=== PATIENT | female | born 1985 | race Two or more races ===

== ENCOUNTER 2022-11-30 10:18 | Inpatient (IN) | payer OTHER ==
[~2022-11-30] VITALS: Ht 167.6 cm; Wt 49.9 kg
--- NOTE | 2022-11-30 10:25 | NUR ---
FERNANDO RA39 "Family called acting bizarre this am- went to neighbors. Hallucinating. [id number]"
[2022-11-30 11:11] LABS: CALCIUM, SERUM 8.7 mg/dL (8.5-10.1); CARBON DIOXIDE 24 mmol/L (21-32); CHLORIDE 96 mmol/L (98-107); CREATININE 0.6 mg/dL (0.6-1.3); GLUCOSE 234 mg/dL (74-106); SODIUM SERUM 131 mmol/L (136-145); UREA NITROGEN, BLOOD 6 mg/dL (7-18)
--- NOTE | 2022-11-30 11:14 | NUR ---
potassium 2.6 , made aware
[2022-11-30 11:17] LABS: ALANINE AMINOTRANSFERASE 46 U/L (12-78); ALBUMIN 3.5 g/dL (3.4-5.0); ALCOHOL, BLOOD < 3 mg/dL (0-0); ALKALINE PHOSPHATASE 179 U/L (46-116); ASPARTATE AMINOTRANSFERASE 300 U/L (15-37); BILIRUBIN,DIRECT 0.5 mg/dL (0.0-0.2); BILIRUBIN,TOTAL 1.3 mg/dL (0.2-1.0); TOTAL PROTEIN, SERUM 8.6 g/dL (6.4-8.2)
[2022-11-30 11:20] LABS: ACETAMINOPHEN 0 ug/ml (10-30); POTASSIUM 2.6 mmol/L (3.5-5.1)
--- NOTE | 2022-11-30 11:30 | NUR ---
URINE SAMPLE OBTAINED
--- NOTE | 2022-11-30 11:40 | NUR ---
BLOOD SAMPLE OBTAINED
[2022-11-30] MEDS ORDERED: OLANZAPINE 10 MG VIAL IM ONE ×2 (11:45→12:00)
[2022-11-30] MEDS ORDERED: POTASSIUM CL. PREMIX PERIPHER. 200 ML ONE (11:49)
[2022-11-30] MEDS ORDERED: LORAZEPAM INJ 2 MG/ML VIAL ONE ×2 (11:50→17:06)
[2022-11-30] MEDS ORDERED: LORAZEPAM INJ 2 MG/ML VIAL IVP ONE (12:00)
[2022-11-30 12:28] LABS: BASOPHILS % (AUTO) 0.2 % (0.0-2.0); EOSINOPHILS % (AUTO) 0.1 % (0.0-6.0); HEMATOCRIT 38 % (33-45); HEMOGLOBIN 12.3 g/dL (11.5-14.8); LYMPHOCYTES # (AUTO) 2.8 K/uL (0.8-4.8); LYMPHOCYTES % (AUTO) 28.6 % (20.0-44.0); MEAN CORPUSCULAR HGB CONC 33 g/dl (31.0-36.0); MEAN CORPUSCULAR VOLUME 96 fL (82-100); MONOCYTES # (AUTO) 0.9 K/uL (0.1-1.30); NEUTROPHILS % (AUTO) 62.1 % (43.0-81.0); PLATELET COUNT (AUTO) 115 K/uL (150-450); RED BLOOD CELL COUNT(AUTO) 3.92 MIL/uL (4.0-5.2); WHITE BLOOD COUNT (AUTO) 9.7 K/uL (4.3-11.0)
[2022-11-30] MEDS: POTASSIUM CL. PREMIX PERIPHER. 50 ML IV SCH ×4 (12:30→15:35)
[2022-11-30 12:39] LABS: BILIRUBIN,URINE 2+ (NEGATIVE); COLOR,URINE YELLOW (YELLOW); LEUKOCYTE ESTERASE ,URINE TRACE (NEGATIVE); NITRITE, URINE NEGATIVE (NEGATIVE); PH,URINE 6.5 (5.0-8.0); PROTEIN,URINE 1+ mg/dl (NEGATIVE); UGLUCOSE NEGATIVE (NEGATIVE)
--- NOTE | 2022-11-30 12:55 | NUR ---
PATIENT TAKEN TO CT
--- NOTE | 2022-11-30 12:59 | NUR ---
MOVE SHEET SUBMITTED.
[2022-11-30] MEDS ORDERED: BICT1TAB PO (13:05)
--- NOTE | 2022-11-30 13:13 | NUR ---
PATIENT BACK FROM CT
--- NOTE | 2022-11-30 13:14 | NUR ---
COVID SWAB OBTAINED
[2022-11-30 13:28] LABS: BACTERIA,URINE None seen /HPF (None Seen); CALCIUM OXALATE CRYSTALS,UR Moderate /HPF (None Seen); RBC,URINE 0-2 /HPF (0-2); SQUAMOUS EPITHELIAL CELL,UR Many /HPF (None Seen)
[2022-11-30] MEDS ORDERED: MAG HYDROX/AL HYDROX/SIMETH 30 ML UDC PO PRN (14:30)
[2022-11-30] MEDS ORDERED: ACETAMINOPHEN 325 MG TABLET PO PRN (14:30)
[2022-11-30] MEDS ORDERED: Z GUARD REMEDY 4 OZ OINT TP PRN (14:30)
[2022-11-30] MEDS ORDERED: ONDANSETRON HCL/PF 4 MG/2 ML VIAL IVP PRN (14:30)
[2022-11-30] MEDS ORDERED: MAGNESIUM HYDROXIDE 30 ML UDC PO PRN (14:30)
--- NOTE | 2022-11-30 15:51 | NUR ---
BED 110 , ADMITTING AWARE
--- NOTE | 2022-11-30 16:08 | NUR ---
report given to Ileana GARCIA
--- NOTE | 2022-11-30 16:23 | NUR ---
patient moved to assigned inpatient room safely per protocol
[2022-11-30] MEDS ORDERED: LORAZEPAM INJ 2 MG/ML VIAL IV PRN (17:30)
--- NOTE | 2022-11-30 17:45 | NUR ---
RECEIVED PATIENT ADMISSION FROM ER ACCOMPANIED BY THE NURSE. PATIENT CAME VIA HOSPITAL BED. PATIENT IS VERY CONFUSED, ABLE TO SPEAK BUT CONVERSATIONS DOES NOT MAKE SENSE, PATIENT JUMPS FROM ONE CONVERSATION TO ANOTHER. ON RA WITH OXYGEN SATURATION OF 100%NO C/O PAIN OR DISCOMFORT. PLACED PATIENT ON A HEART MONITOR WITH HR OF 120 PER TELE MONITOR. IV ACCESS INTACT ON LEFT FOREARM, PATENT AND FLUSHES WELL WITH NO S/S INFILTRATION NOTED. BELONGINGS LIST DONE AND BODY CHECK DONE. ALL SAFETY MEASURES IMPLEMENTED. BED LOCKED AND IN LOWEST POSITION. WILL CONTINUE TO MONITOR PATIENT THROUGHOUT SHIFT. V/S FOLLOWS: BP 114/78, RR 20, TEMP 99.8
[2022-11-30] MEDS ORDERED: HALOPERIDOL LACTATE INJ 5 MG/ML VIAL IM ONE (18:30)
--- NOTE | 2022-11-30 18:30 | NUR ---
PATIENT WAS NOTED TO BE VERY RESTLESS AND TRYING TO GET OUT OF THE BED. PATIENT IS VERY DISORIENTED AND IS YELLING AND SCREAMING. NOTICED A RAPID ELEVATION IN PATIENT'S HR PER TELE MONITOR WITH HR OF 190. CALLED DR. MCCOY AND ORDERED HALDOL 1 MG AND STAT PSYCH CONSULT. CALLED RAPID RESPONSE TEAM DUE TO HR HAS BEEN GOING UP TO 200. PATIENT IS HIGHLY AGITATED AT THIS TIME. ALSO ORDERED RESTRAINTS FOR SAFETY AND FOR A ONE ON ONE SITTER. WILL CONTINUE TO MONITOR PATIENT
[2022-11-30 18:41] VITALS: BP 114/78
--- NOTE | 2022-11-30 19:25 | NUR ---
RN NOTES RECEIVED PT FOR CONTINUITY OF CARE. PATIENT SLEEPING IN NO S/SX OF ACUTE DISTRESS AT THIS TIME; CURRENTLY ON ROOM AIR; WITH 02 SAT >95% AT THIS TIME. WITH IV ACCESS ON L FA#20 PATENT, INTACT AND FLUSHING WELL. WITH IV FLUID RUNNING PER MD ORDER. WITH SITTER AT BEDSIDE. WILL ENSURE SAFETY MEASURES WITHIN THE SHIFT. PATIENT BED ALARM IS ON. HEAD OF BED ELEVATED. BED IS LOCKED, IN LOWEST POSITION AND SIDE RAILS UP. CALL LIGHT WITHIN REACH OF THE PATIENT. APPROPRIATE PRECAUTIONS IN PLACE. WILL CONTINUE TO MONITOR AND REASSESS FOR ANY CHANGES AND WILL CARRY OUT ANY ONGOING AND ACTIVE MD ORDER.
--- NOTE | 2022-11-30 19:25 | NUR ---
PATIENT IS SLEEPING AT THIS TIME. ON ST PER TELE MONITOR WITH HR OF 122 AT THIS TIME. IV INTAC ON LEFT FOREARM WITH NS @ 75 ML/HR, SITE PATENT, NO S/S INFILTRATION NOTED. ALL SAFETY MEASURES IMPLEMENTED. BED LOCKED AND IN LOWEST POSITION WITH BED ALARM ON. WILL ENDORSE TO NEXT SHIFT NURSE FOR CONTINUITY OF CARE. PATIENT'S FATHER BRIAN CAME BY WITH PHONE NUMBER OF
[2022-11-30 20:00] VITALS: BP 120/73
[2022-11-30] MEDS: IV NS 0.9% 1,000 ML IV PRN (21:00)
[2022-11-30] MEDS ORDERED: POTASSIUM CHLORIDE 20 MEQ TAB.PRT.SR PO ONE (22:00)
[2022-12-01] VITALS: BP 119/88
[2022-12-01 04:00] VITALS: BP 119/83
--- NOTE | 2022-12-01 04:00 | NUR ---
RN NOTE PATIENT REMAINED TO BE IN NO SIGNS OF ACUTE RESPIRATORY DISTRESS , SAFE ENVIRONMENT MAINTAINED FOR PT. AM PATIENT CARE ASSISTANCE RENDERED, SITTER AT BEDSIDE. WILL CONTINUE TO MONITOR AND REASSESS FOR ANY CHANGES THROUGHOUT THE SHIFT.
--- NOTE | 2022-12-01 06:46 | NUR ---
RN CLOSING NOTE PATIENT REMAINS IN ROOM IN NO SIGNS OF RESPIRATORY DISTRESS AT THIS TIME, PATIENT STILL ON ROOM AIR ;TOLERATING WELL SATURATING @ >95% SP02. PT IS NOW A/OX3-4 WITH EPISODES OF CONFUSION. NON COMBATIVE AND CALM AND COOPERATIVE WITHIN THE SHIFT. SAFETY MEASURES IMPLEMENTED, BED IN LOWEST POSITION, LOCKED, SIDE RAILS UP, CALL LIGHT WITHIN REACH. ALL NEEDS AND ORDERS ADDRESSED DURING THE SHIFT. IV ACCESS MAINTAINED INTACT, SECURED AND FLUSHING WELL. IV FLUID BILATERAL SOFT RESTRAINTS RENEWED. PATIENT KEPT CLEAN AND COMFORTABLE WITHIN THE SHIFT. PATIENT ENDORSED TO INCOMING SHIFT RN WITH STABLE VITAL SIGN AND FOR CONTINUITY OF CARE.
[2022-12-01 06:55] LABS: BASOPHILS % (AUTO) 0.3 % (0.0-2.0); EOSINOPHILS % (AUTO) 2.5 % (0.0-6.0); HEMATOCRIT 30 % (33-45); HEMOGLOBIN 9.6 g/dL (11.5-14.8); LYMPHOCYTES # (AUTO) 1.9 K/uL (0.8-4.8); LYMPHOCYTES % (AUTO) 16.3 % (20.0-44.0); MEAN CORPUSCULAR HGB CONC 32 g/dl (31.0-36.0); MEAN CORPUSCULAR VOLUME 97 fL (82-100); MONOCYTES # (AUTO) 0.9 K/uL (0.1-1.30); MONOCYTES % (AUTO) 8.3 % (2.0-12.0); NEUTROPHILS # (AUTO) 8.3 K/uL (1.8-8.9); NEUTROPHILS % (AUTO) 72.6 % (43.0-81.0); PLATELET COUNT (AUTO) 122 K/uL (150-450); WHITE BLOOD COUNT (AUTO) 11.4 K/uL (4.3-11.0)
--- NOTE | 2022-12-01 07:15 | NUR ---
SARAH RN OPENING NOTES: PATIENT REMAINS IN BED ASLEEP BUT EASILY AROUSABLE, IN NO SIGNS OF RESPIRATORY DISTRESS AT THIS TIME, PATIENT STILL ON ROOM AIR ;TOLERATING WELL SATURATING @ >95% SP02. PT IS NOW A/OX3-4 WITH EPISODES OF CONFUSION. SAFETY MEASURES IMPLEMENTED, BED IN LOWEST POSITION, LOCKED, SIDE RAILS UP, CALL LIGHT WITHIN REACH. IV ACCESS AT LEFT FOREARM SALINE LOCK G #20 MAINTAINED INTACT, SECURED AND FLUSHING WELL. IV FLUID BILATERAL SOFT RESTRAINTS RENEWED. WILL MONITOR.
[2022-12-01 07:23] LABS: ALBUMIN 2.6 g/dL (3.4-5.0); BILIRUBIN,TOTAL 1.3 mg/dL (0.2-1.0); CREATININE 0.4 mg/dL (0.6-1.3); MAGNESIUM 1.3 mg/dL (1.8-2.4); PHOSPHORUS 2.5 mg/dL (2.5-4.9); POTASSIUM 3.4 mmol/L (3.5-5.1); TOTAL PROTEIN, SERUM 6.7 g/dL (6.4-8.2)
[2022-12-01 08:00] VITALS: BP 121/99
[2022-12-01] MEDS: IV NS 0.9% 1,000 ML IV PRN (10:05)
[2022-12-01 12:00] VITALS: BP 103/74
[2022-12-01] MEDS ORDERED: MAGNESIUM OXIDE 400 MG TABLET PO ONE (12:00)
[2022-12-01] MEDS ORDERED: POTASSIUM CHLORIDE 20 MEQ TAB.PRT.SR PO SCH (12:00)
[2022-12-01 16:00] VITALS: BP 144/67
--- NOTE | 2022-12-01 19:10 | NUR ---
RN CLOSING NOTE PATIENT REMAINS IN ROOM IN NO SIGNS OF RESPIRATORY DISTRESS AT THIS TIME, PATIENT STILL ON ROOM AIR ;TOLERATING WELL SATURATING @ >95% SP02. PT IS NOW A/OX3-4 WITH CALM. NON COMBATIVE AND CALM AND COOPERATIVE WITHIN THE SHIFT. SAFETY MEASURES IMPLEMENTED, BED IN LOWEST POSITION, LOCKED, SIDE RAILS UP, CALL LIGHT WITHIN REACH. ALL NEEDS AND ORDERS ADDRESSED DURING THE SHIFT. IV ACCESS MAINTAINED INTACT, SECURED AND FLUSHING WELL. IV FLUID BILATERAL SOFT RESTRAINTS RENEWED. PATIENT KEPT CLEAN AND COMFORTABLE WITHIN THE SHIFT. PATIENT ENDORSED TO INCOMING SHIFT RN WITH STABLE VITAL SIGN AND FOR CONTINUITY OF CARE.
[2022-12-01 20:00] VITALS: BP 135/89
[2022-12-01] MEDS ORDERED: TRAZODONE 50 MG TABLET PO PRN (22:00)
[2022-12-01] MEDS ORDERED: TRAZODONE 50 MG TABLET PO SCH (22:00)
[2022-12-01] MEDS ORDERED: LORAZEPAM INJ 2 MG/ML VIAL IV PRN (23:30)
[2022-12-02 04:00] VITALS: BP 125/81
--- NOTE | 2022-12-02 07:15 | NUR ---
SARAH RN OPENING NOTES: RECEIVED PT IN BED AWAKE ALERT AND ORIENTED X 4, NO SIGNS OF RESPIRATORY DISTRESS AT THIS TIME, PATIENT STILL ON ROOM AIR ;TOLERATING WELL SATURATING 98% SP02. SAFETY MEASURES IMPLEMENTED, BED IN LOWEST POSITION, LOCKED, SIDE RAILS UP, CALL LIGHT WITHIN REACH. IV ACCESS AT LEFT FOREARM SALINE LOCK G #20 MAINTAINED INTACT, SECURED AND FLUSHING WELL. IV FLUID . WILL MONITOR.
[2022-12-02 07:55] LABS: CALCIUM, SERUM 8.5 mg/dL (8.5-10.1); CREATININE 0.4 mg/dL (0.6-1.3); MAGNESIUM 1.6 mg/dL (1.8-2.4); POTASSIUM 3.8 mmol/L (3.5-5.1)
[2022-12-02] MEDS: IV NS 0.9% 1,000 ML IV PRN (08:01)
[2022-12-02] MEDS ORDERED: [UNRECOGNIZED DRUG - OTHER] PO SCH (09:00)
[2022-12-02] MEDS ORDERED: TRAZ-252 PO (09:44)
[2022-12-02 10:32] VITALS: BP 127/84
[2022-12-02] MEDS ORDERED: MAGNESIUM OXIDE 400 MG TABLET PO ONE (11:30)
--- NOTE | 2022-12-02 11:40 | NUR ---
RN NOTES: PT IS READY FOR DISCHARGE, DISCHARGE INSTRUCTION GIVEN.BODY CHECKED SKIN INTACT,IV LINE REMOVED, NO BLEEDING NOTED.ASSISTED PT TO HER SISTER PRIVATE CAR SHE PREFER TO WALK IN STABLE CONDITION, SHE PICKED UP ALL BELONGING AND HOME MEDICINE
[2022-12-02] MEDS ORDERED: ENSURE ENLIVE CHOC 237 ML CAN PO SCH (12:00)
== END 2022-12-02 11:00 | disposition home or self-care (01) | DRG 425 ==
LOC: ER 10:24 → TELE1 16:34 → TELE-TD 18:49
PROVIDERS: ADMIT Internal Medicine; ATTEND Internal Medicine
DX: E87.6 Hypokalemia (principal); G92.9 Unspecified toxic encephalopathy; F05 Delirium due to known physiological condition; D69.6 Thrombocytopenia, unspecified; F23 Brief psychotic disorder; E87.1 Hypo-osmolality and hyponatremia; F41.1 Generalized anxiety disorder; Z79.899 Other long term (current) drug therapy; Z88.8 Allergy status to other drugs, medicaments and biological substances; R74.01 Elevation of levels of liver transaminase levels; Z90.81 Acquired absence of spleen; Z90.411 Acquired partial absence of pancreas; G47.00 Insomnia, unspecified; Z87.828 Personal history of other (healed) physical injury and trauma
CPT/HCPCS: 36415; 70450-TC; 80048-TC; 80053-TC; 80076-TC; 81001; 82140-TC; 83735-TC; 84100-TC; 84132-TC; 84703-TC; 85025-TC; 87081-TC; A4223; C9803; G0378; G0480; J1630; J2060; J3480; J3490; J7030